=== PATIENT | female | born 1995 | race American Indian/Alaskan Native ===

== ENCOUNTER 2018-11-07 19:54 | Emergency (ER) | payer BC, MEDICAID ==
[2018-11-07 19:58] VITALS: BP 132/82
--- NOTE | 2018-11-07 20:20 | EDM.PDOC ---
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 Patient reports her LMP was August 21. She reports she is over a 11 weeks . Patient reports that she saw an OB in [place]. Patient reports while at home in [place] she started having vaginal bleeding involving one pad and pelvic cramping. Patient denies kong, dizziness, n, v, d, f, cp, shortness of breath, upper abd pain. Patient reports lower abdominal RLQ, LLQ and pelvic bilateral cramping pain. Patient is G2, P1, A0. Onset: Today, Sudden Onset Date: 11/07/18 Duration: Hour(s): (2) Location: Reports: Pelvis Quality: Reports: Other (cramping) Severity: Moderate Improves with: Reports: None Worsens with: Reports: None Associated Symptoms: Denies: Confusion, Chest Pain, Cough, cough w sputum, Diaphoresis, Fever/Chills, Headaches, Loss of Appetite, Malaise, Nausea/Vomiting , Rash, Seizure, Shortness of Breath, Syncope, Weakness - Related Data Allergies Allergy/AdvReac Type Severity Reaction Status Date / Time No Known Allergies Allergy Verified 11/07/18 23:33 Home Meds: Home Meds Nitrofurantoin Macrocrystal [Nitrofurantoin] 100 mg PO BID 11/07/18 [History] Pnv No.95/Ferrous Fum/Folic AC [ Caplet] 1 tab PO DAILY 11/07/18 [ History] Past Medical History - Past Health History Medical/Surgical History: Denies 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 Denies: Nausea, Vomiting : Reports: Other (Pelvic cramping, bleeding one pad. Pelvic pain) Musculoskeletal: Reports: No Symptoms Skin: Reports: No Symptoms Neurological: Reports: No Symptoms Psychiatric: Reports: No Symptoms Hematologic/Lymphatic: Reports: No Symptoms Immunologic: Reports: No Symptoms ED EXAM, GI/ABD - Physical Exam Exam: See Below Exam Limited By: No Limitations General Appearance: Alert, WD/WN, Anxious, Other (tearful) Eyes: Bilateral: Normal Appearance Ears: Normal External Exam, Normal Canal, Hearing Grossly Normal, Normal TMs Nose: Normal Inspection, Normal Mucosa, No Blood Throat/Mouth: Normal Inspection, Normal Lips, Normal Teeth, Normal Gums, Normal Oropharynx, Normal Voice, No Airway Compromise Head: Atraumatic, Normocephalic Neck: Normal Inspection Respiratory/Chest: No Respiratory Distress, Lungs Clear, Normal Breath Sounds, No Accessory Muscle Use, Chest Non-Tender Cardiovascular: Normal Peripheral Pulses, Regular Rate, Rhythm, No Edema, No Gallop, No JVD, No Murmur, No Rub GI/Abdominal Exam: Normal Bowel Sounds, Soft, No Organomegaly, No Distention, No Abnormal Bruit, No Mass, Tender (Bilateral lower abd/pelvis tenderness mild. ) (Female) Exam: Other (Patient refused. Blood visbiliy seen on front of shorts over pelvic region.) Back Exam: Normal Inspection, Full Range of Motion. No: CVA Tenderness (L), CVA Tenderness (R) Extremities: Normal Inspection, Normal Range of Motion, Non-Tender, No Pedal Edema, Normal Capillary Refill Neurological: Alert, Oriented, Normal Cognition, Normal Gait, No Motor/Sensory Deficits Psychiatric: Anxious, Tearful Skin Exam: Warm, Dry, Intact, Normal Color, No Rash Course - Vital Signs Last Recorded V/S: Last Vital Signs Temp 98.4 F 11/07/18 19:56 Pulse 69 11/07/18 19:56 Resp 16 11/07/18 19:56 BP 132/82 11/07/18 19:56 Pulse Ox 96 11/07/18 19:56 - Re-Assessments/Exams Free Text/Narrative Re-Assessment/Exam: 11/07/18 21:03 Immediately following my exam and history taking I informed the patient of the plan to do labs, perform a pelvic examination, the consult with OB aeronautical engineer. I informed the patent and significant other at bedside that we do not have OB or US capabilities at this facility at this time on the weekend. The patient and significant other immediately refused all of our services and plan and said they wanted to drive to [place] for an US. I explained to the patient that doing so, puts her at risk for bleeding out and as a risk. She still wants to be discharged now. I explained that if at any point the patient became unresponsive, dizzy, lightheaded, passing out, increase in pain, increase in bleeding OR any concerns at all, they need to get to the nearest ER [facility]. The voiced back understanding, signed the AMA form and left. Departure - Departure Time of Disposition: 20:19 Disposition: Against Medical Advice 07 Condition: Serious Clinical Impression: Left against medical advice - Discharge Information *PRESCRIPTION DRUG MONITORING PROGRAM REVIEWED*: Not Applicable *COPY OF PRESCRIPTION DRUG MONITORING REPORT IN PATIENT ALECIA: Not Applicable Referrals: PCP,None [Primary Care Provider] - Forms: ED Department Discharge Additional Instructions: PLEASE BE SEEN SOMEWHERE IF YOU EXPERIENCE LIGHTHEADED, PASSING OUT, INCREASE IN BLEEDING, INCREASE IN PAIN PLEASE GO TO NEAREST ER COULD RESULT - Assessment/Plan Plan: PLEASE SEE RN NOTE FOR PFSH
== END 2018-11-07 20:17 | disposition left against medical advice (07) ==
LOC: CC.ED 19:54
DX: O99.89 Other specified diseases and conditions complicating pregnancy, childbirth and the puerperium (principal); R10.32 Left lower quadrant pain; R10.31 Right lower quadrant pain; Z3A.11 11 weeks gestation of pregnancy; Z53.20 Procedure and treatment not carried out because of patient's decision for unspecified reasons; Z79.899 Other long term (current) drug therapy
CPT/HCPCS: 99283